=== PATIENT | female | born 1945 | race Caucasian/White ===

== ENCOUNTER 2018-05-03 12:43 | Observation (INO) | payer MEDICARE, OTHER, SELFPAY ==
[2018-05-03] VITALS (13 sets, daily range): BP systolic 101–155; BP diastolic 55–78; PULSE 50–61; RESP 9–100; TEMP 35.7–36.4; O2SAT 96–100; BMI 36.8
--- NOTE | 2018-05-03 12:57 | DI.RAD.S_ITS ---
PROCEDURE: XR CHEST 1V INDICATIONS: CHEST PAIN TECHNIQUE: One view of the chest was acquired. COMPARISON: Merged With [facility], , CHEST 1 VIEW, 03/06/2017, 22:59. FINDINGS: Surgical changes and devices: None. Lungs and pleura: No pleural effusions or pneumothorax. Lungs are clear. Mediastinum: Mediastinal contours appear normal. Heart size is borderline. Mildly tortuous descending aorta. Bones and chest wall: No suspicious bony lesions. Overlying soft tissues appear unremarkable. IMPRESSION: No acute cardiopulmonary abnormality. Dictated by: Javy Borges M.D. on 05/03/2018 at 13:20 Approved by: Javy Borges M.D. on 05/03/2018 at 13:21
[2018-05-03] MEDS: ASPIRIN 81 MG TAB 324 MG PO (13:15)
[2018-05-03 13:18] LABS: Add Manual Diff / Slide Review NO; Basophils Percent Auto 0.6 % (0-2); Eosinophils Percent Auto 4.4 % (2-4); Hematocrit 34.7 % (36-46); Hemoglobin 11.5 g/dL (12.0-16.0); Lymphocytes Percent Auto 26.9 % (25-40); Mean Corpuscular HGB Conc 33.2 % (30-36); Mean Corpuscular Hemoglobin 28.2 PG (26-34); Mean Corpuscular Volume 84.8 fL (80-100); Monocytes Percent Auto 9.1 % (3-14); Neutrophils Absolute Auto 4900 /uL (3000-5900); Platelet Count 257 X10^3/uL (150-400); Red Blood Cell Count 4.09 X10^6/uL (4.0-5.2); Red Cell Distribution Width 14.8 % (11.6-14.8); White Blood Cell Count 8.4 X10^3/uL (4.5-11.0)
[2018-05-03 13:26] LABS: Alanine Aminotransferase 31 IU/L (9-52); Albumin Globulin Ratio 1.3 (1.0-2.8); Alkaline Phosphatase 70 U/L (38-126); Aspartate Aminotransferase 31 IU/L (14-36); Bilirubin Total 0.4 mg/dL (0.2-1.3); Blood Urea Nitrogen 20 mg/dL (7-17); Calcium 8.9 mg/dL (8.4-10.2); Carbon Dioxide 28 mmol/L (22-32); Chloride 104 mmol/L (98-107); Creatine Kinase 172 U/L (30-135); Estimated Glomerular Filt Rate > 60.0 mL/min (>60); Globulin 3.1 g/dL (1.7-4.1); Glucose 97 mg/dL (80-110); HEMOLYSIS < 15 (0-50); Lipase 207 U/L (23-300); Potassium 4.3 mmol/L (3.4-5.1); Sodium 142 mmol/L (137-145); Total Protein 7.1 g/dL (6.3-8.2)
[2018-05-03 13:39] LABS: Troponin I < 0.012 ng/mL (0.01-0.034)
[2018-05-03 13:42] LABS: CKMB % Relative Index 0.8 % (1.5-5.0); Creatine Kinase MB 1.33 ng/mL (<2.37)
[2018-05-03] MEDS: NITROGLYCERIN 0.4 MG SL TAB SL (13:45)
--- NOTE | 2018-05-03 13:59 | ED_ITS ---
HPI - Chest Pain General Chief Complaint: Chest Pain Stated Complaint: CHEST PAIN/ARM Time Seen by Provider: 05/03/18 12:46 Source: patient and family Mode of arrival: ambulatory Limitations: no limitations History of Present Illness HPI narrative: 72-year-old female with history of hypertension and hyperlipidemia presents to the emergency department with chest pain times 30 min. She states that started while at rest and radiates to left shoulder left jaw. She denies provocation or palliation of pain. She denies recent travel, history of clots, or recent surgery. She denies recent injury, excessive use, or other likely precipitant. Related Data Home Medications Medication Instructions Recorded Confirmed gabapentin [Neurontin] #0 12/19/16 hydrocodone-acetaminophen PRN #0 12/19/16 Previous Rx's Medication Instructions Recorded [id number] 4 drp OTIC TID #10 ml 07/12/16 donepezil [Aricept] 10 mg PO HS #90 tab 12/12/17 Allergies Allergy/AdvReac Type Severity Reaction Status Date / Time Penicillins [PENICILLINS] Allergy Mild RASH Verified 05/03/18 13:16 Review of Systems Review of Systems All systems reviewed & are unremarkable except as noted in HPI and below Constitutional Denies chills, Denies fever(s), Denies lethargy and Denies weakness Eyes Denies change in vision, Denies eye discharge, Denies irritation and Denies loss of vision ENT Ears, Nose, Mouth, and Throat: Denies change in voice, Denies neck pain and Denies sore throat Cardiovascular Reports chest pain, Denies irregular heart rhythm, Denies lightheadedness, Denies palpitations, Denies dyspnea, Denies dyspnea on exertion and Denies orthopnea Respiratory Denies cough, Denies dyspnea, Denies dyspnea on exertion and Denies wheezing Gastrointestinal Gastrointestinal: Denies abdominal pain, Denies change in bowel habits, Denies diarrhea, Denies nausea and Denies vomiting Genitourinary Denies hematuria, Denies flank pain, Denies urinary incontinence and Denies urinary urgency Musculoskeletal Denies neck pain Integumentary/Breasts Denies pruritus, Denies erythema, Denies rash and Denies wounds Neurologic Denies confusion, Denies loss of vision and Denies weakness Psychiatric Denies anxiety, Denies confusion, Denies depression, Denies homicidal ideation and Denies suicidal ideation Endocrine Denies palpitations Hematologic/Lymphatic Denies easy bruising Allergic/Immunologic Denies wheezing PFSH Social History Smoking Status: Never smoker Exam Narrative Exam Narrative: 72-year-old female resting comfortably, perhaps a bit anxious Initial Vital Signs Initial Vital Signs: Vital Signs Pulse Rate 56 L 05/03/18 12:45 Blood Pressure 138/66 H 05/03/18 12:45 Pulse Oximetry 100 05/03/18 12:45 Const General: cooperative and well developed Nutritional Appearance: well nourished Orientation: alert, awake, oriented x3 and not confused HENMT Head: normocephalic and atraumatic Ears: external ears normal and TM's normal bilaterally Nose: external nose normal and No nasal discharge Face and sinus: sinuses nontender, face symmetric, no sinus tenderness and No dry mucous membranes Mouth: oral mucosae normal and moist mucous membranes Teeth and gingiva: dentition normal Throat: tonsils normal and uvula midline Eyes General: appearance normal, both eyes and all related structures Eyelids: eyelids normal Conjunctivae: conjunctivae normal Sclera: sclerae normal Pupils: PERRL EOM: EOM intact bilaterally Chest Other: Patient does have some sharp reproducible left anterior chest pain, also right-sided, that is bothersome but is not the pain that brought her in Resp Effort & Inspection: normal respiratory effort, able to speak in complete sentences, no respiratory distress and no use of accessory muscles Auscultation: clear to auscultation bilaterally, no rales, no rhonchi and no wheezes Cardio Rate: regular rate Rhythm: regular rhythm Heart Sounds: no click, no gallops, no murmurs and no rubs Pulses: normal peripheral pulses Back/Spine/Pelvis Back: No CVA tenderness Cervical Spine: cervical ROM normal and No pain with cervical ROM Thoracic/Lumbar Spine: thoracic and lumbar spine normal to inspection Extrem General: full ROM, no clubbing, cyanosis or edema, no pedal edema and no calf tenderness Scores HEART Score Heart Score history: Moderately Suspicious Heart Score EKG: Normal Heart Score Age: > or = 65 years old Heart Score risk factors: 1-2 risk factors Heart Score troponin: < or = to normal limit Heart Score Total: 4 Course Orders Ordered: ED Orders 05/03/18 12:57 XR chest 1V Stat EKG-12 Lead Stat 05/03/18 13:04 Complete Blood Count AUTO DIFF Stat Comprehensive Metabolic Panel Stat Lipase Stat Troponin with CK Cardiac Panel Stat 05/03/18 14:55 Troponin I Stat Discontinued Medications Aspirin (Aspirin Chew) 324 mg PO NOW ONE Stop: 05/03/18 12:58 Last Admin: 05/03/18 13:15 Dose: 324 mg Sodium Chloride (Normal Saline 0.9%) 1,000 mls @ 150 mls/hr IV CONT ASHLEY Nitroglycerin (Nitrostat) 0.4 mg SL NOW ONE Stop: 05/03/18 13:49 Last Admin: 05/03/18 13:45 Dose: 0.4 mg Reevaluation(s) Reevaluation #1: Patient pain down to a 1/10 after nitro Time: 14:14 Consultations Consultation #1: Discussion with hospitalist and we agree to repeat troponin at the 2 hr mushtaq to be sure she is not evolving here in the department. Plan with normal troponin would be to admit, increasing troponin will warrants cardiology discussion Time: 14:14 Consultation #2: Repeat troponin is normal. Dr. Harris happy to accept Time: 15:51 Vital Signs - 8 hr 05/03/18 12:45 05/03/18 12:52 05/03/18 13:30 Temperature 96.3 F L Pulse Rate 56 L 60 55 L Respiratory Rate 20 Blood Pressure 138/66 H Blood Pressure [Right Arm] 138/66 H 138/66 H Pulse Oximetry 100 100 99 05/03/18 13:45 05/03/18 14:00 05/03/18 14:30 Temperature Pulse Rate 61 50 L 50 L Respiratory Rate 11 L Blood Pressure 141/60 H Blood Pressure [Right Arm] 119/56 L 124/55 H Pulse Oximetry 97 98 05/03/18 15:00 05/03/18 15:30 Temperature Pulse Rate 50 L 51 L Respiratory Rate 9 L 100 H Blood Pressure Blood Pressure [Right Arm] 121/64 H 101/78 Pulse Oximetry 98 MDM - Chest Pain Differential Diagnosis Likely pneumothorax, stable angina, unstable angina pectoris, atypical chest pain, st elevation myocardial infarction, costochondritis, chest pain and biliary colic Medical Records Data Attestation: I reviewed the patient's medical records. Lab Data Attestation: I reviewed the patient's lab results. Result diagrams: 05/03/18 13:04 05/03/18 13:04 Lab Results 05/03/18 05/03/18 05/03/18 Range/Units 13:04 13:04 14:55 WBC 8.4 (4.5-11.0) X10^3/uL RBC 4.09 (4.0-5.2) X10^6/uL Hgb 11.5 L (12.0-16.0) g/dL Hct 34.7 L (36-46) % MCV 84.8 (80-100) fL MCH 28.2 (26-34) PG MCHC 33.2 (30-36) % RDW 14.8 (11.6-14.8) % Plt Count 257 (150-400) X10^3/uL Neut % (Auto) 59.0 (50-75) % Lymph % (Auto) 26.9 (25-40) % [place] % (Auto) 9.1 (3-14) % Eos % (Auto) 4.4 H (2-4) % Baso % (Auto) 0.6 (0-2) % Neut # (Auto) 4900 (3735-7710) /uL Sodium 142 (137-145) mmol/L Potassium 4.3 (3.4-5.1) mmol/L Chloride 104 (98-107) mmol/L Carbon Dioxide 28 (22-32) mmol/L BUN 20 H (7-17) mg/dL Creatinine 0.80 (0.52-1.04) mg/dL Estimated GFR > 60.0 (>60) mL/min BUN/Creatinine Ratio 25.0 H (6-22) Glucose 97 (80-110) mg/dL Calcium 8.9 (8.4-10.2) mg/dL Total Bilirubin 0.4 (0.2-1.3) mg/dL AST 31 (14-36) IU/L ALT 31 (9-52) IU/L Alkaline Phosphatase 70 (38-126) U/L Total Creatine Kinase 172 H (30-135) U/L CK-MB (CK-2) 1.33 (<2.37) ng/mL CK-MB (CK-2) Rel Index 0.8 L (1.5-5.0) % Troponin I < 0.012 < 0.012 (0.01-0.034) ng/mL Total Protein 7.1 (6.3-8.2) g/dL Albumin 4.0 (3.5-5.0) g/dL Globulin 3.1 (1.7-4.1) g/dL Albumin/Globulin Ratio 1.3 (1.0-2.8) Lipase 207 (23-300) U/L ECG Data Attestation: I personally reviewed and interpreted this ECG as follows: Interpretation: Normal sinus rhythm without signs of ectopy or ischemia Repeat EKG unchanged MDM Narrative Medical decision making narrative: Patient with history of hypertension and hyperlipidemia presents with chest pain that started at rest just prior to arrival. She admits to radiation of pain to left shoulder and jaw but denies cardiac equivalent such as dizziness, weakness or lightheadedness. She has had no nausea or vomiting. Her heart score is 4 and story is of concern, the time frame does not lend itself to a complete evaluation and discharged from the emergency department. She will be admitted to the hospital for further characterization and evaluation of her pain Discharge Plan Departure Patient Disposition: Admitted as Observation Clinical Impression: Chest pain
[2018-05-03 15:29] LABS: Troponin I < 0.012 ng/mL (0.01-0.034)
--- NOTE | 2018-05-03 16:11 | PC.NURSE ---
reported to me an hour ago that he was going to run errands and that the patient has short term memory problems. He states there's not an alzheimer's diagnosis yet but I think it's coming. I have checked in with her frequently in the last hour to orient her and remind her of admission and she has definitely needed reminding and has forgotten multiple times why she is here. While calling report at the nurses station she came to the doorway of her room having removed herself from all monitors and fully dressed. I sent Elise Cottrell to help her. She walked ot the bathroom with steady gait using her cane. returned at this time and we reoriented her to where she was and admission. She verbalzies understanding.
--- NOTE | 2018-05-03 16:18 | PC.NURSE ---
present upon admission.
--- NOTE | 2018-05-03 16:56 | PM.HP.1 ---
History of Present Illness Date Patient Seen: 05/03/18 Time Patient Seen: 16:57 Chief complaint: CHEST PAIN Narrative: Patient is 72-year-old female presented to the emergency department due to acute chest pain. She does not have prior cardiac history. She was in passenger seat of a car with driving when she had acute moderate to severe pain in the chest which radiated to the jaw and down the arm. She had not had lunch yet. They decided to come to ER for evaluation. The pain was present at time of initial EKG and ER assessment. The discomfort lasted a while, at least an hour, and eventually resolved. Patient has not had any exertional discomfort. She has history of ER evaluation in February 2017 for acute chest pain with negative CT angiogram for pulmonary embolism. She had a stress test in March 2014. She does get intermittent nonradiating chest pains which has been attributed to acid reflux. She has cardiac risk factors of hypertension and hyperlipidemia controlled on medications. Patient History Medical History Esophageal reflux (Acute) Esophageal stricture (Acute) Hyperlipidemia (Acute) Hypertension (Acute) Hypothyroidism (Acute) Melanoma (Acute) Short-term memory loss (Acute) Spinal stenosis (Acute) Family & Social History Family History: Reviewed 05/03/18 by Darryn Harris MD Safety & Behavioral: Feels Safe in Current Yes Environment Been Physically Hurt or No Threatened By a Person Tobacco & Substance use: Smoking Status Never smoker Substance Use Type does not use Meds Home Medications Medication Instructions Recorded Confirmed Type [id number]-[id number]-MP 4 drp OTIC TID #10 ml 07/12/16 Rx gabapentin [Neurontin] #0 12/19/16 History hydrocodone-acetaminophen PRN #0 12/19/16 History donepezil [Aricept] 10 mg PO HS #90 tab 12/12/17 Rx Allergies Allergy/AdvReac Type Severity Reaction Status Date / Time Penicillins [PENICILLINS] Allergy Mild RASH Verified 05/03/18 13:16 Review of Systems Review of Systems All systems reviewed & are unremarkable except as noted in HPI and below Exam Vital Signs (past 8 hours): Vital Signs - 8 hr 05/03/18 12:45 05/03/18 12:52 05/03/18 13:30 Temperature 96.3 F L Pulse Rate 56 L 60 55 L Respiratory Rate 20 Blood Pressure 138/66 H Blood Pressure [Right Arm] 138/66 H 138/66 H Pulse Oximetry 100 100 99 05/03/18 13:45 05/03/18 14:00 05/03/18 14:30 Temperature Pulse Rate 61 50 L 50 L Respiratory Rate 11 L Blood Pressure 141/60 H Blood Pressure [Right Arm] 119/56 L 124/55 H Pulse Oximetry 97 98 05/03/18 15:00 05/03/18 15:30 05/03/18 16:09 Temperature 97.5 F L Pulse Rate 50 L 51 L 52 L Respiratory Rate 9 L 100 H 16 Blood Pressure 155/77 H Blood Pressure [Right Arm] 121/64 H 101/78 Pulse Oximetry 98 100 05/03/18 16:15 Temperature Pulse Rate 51 L Respiratory Rate 16 Blood Pressure 101/78 Blood Pressure [Right Arm] Pulse Oximetry 100 Pulse Oximetry 100 Oxygen Delivery Method Room Air Narrative Exam Narrative: GENERAL: This is an alert well-nourished, well-developed patient, in no apparent distress. HEAD: Atraumatic. Normocephalic. EYES: Pupils equal, round and reactive. Extraocular motions intact. No scleral icterus. No injection or drainage. OROPHARYNX: moist mucosa NECK: Trachea midline. No JVD or lymphadenopathy. CARDIOVASCULAR: Regular rate and rhythm without murmurs, gallops, or rubs. RESPIRATORY: Clear to auscultation bilaterally. GASTROINTESTINAL: Abdomen nondistended, soft, non-tender. No hepato-splenomegaly, or palpable masses. EXTREMITIES: No edema. NEUROLOGICAL: Alert, well oriented, speech is intact, normal bilateral upper and lower extremity strength SKIN: warm, dry, no rash Objective Labs Result Diagrams: 05/03/18 13:04 05/03/18 13:04 Labs: Laboratory Results - last 24 hr 05/03/18 05/03/18 05/03/18 13:04 13:04 14:55 WBC 8.4 RBC 4.09 Hgb 11.5 L Hct 34.7 L MCV 84.8 MCH 28.2 MCHC 33.2 RDW 14.8 Plt Count 257 Neut % (Auto) 59.0 Lymph % (Auto) 26.9 [place] % (Auto) 9.1 Eos % (Auto) 4.4 H Baso % (Auto) 0.6 Neut # (Auto) 4900 Sodium 142 Potassium 4.3 Chloride 104 Carbon Dioxide 28 BUN 20 H Creatinine 0.80 Estimated GFR > 60.0 BUN/Creatinine Ratio 25.0 H Glucose 97 Calcium 8.9 Total Bilirubin 0.4 AST 31 ALT 31 Alkaline Phosphatase 70 Total Creatine Kinase 172 H CK-MB (CK-2) 1.33 CK-MB (CK-2) Rel Index 0.8 L Troponin I < 0.012 < 0.012 Total Protein 7.1 Albumin 4.0 Globulin 3.1 Albumin/Globulin Ratio 1.3 Lipase 207 Assessment & Plan Plan: Assessment/Plan Narrative: 1. Acute chest pain: Patient with cardiac risk factors of hypertension and hyperlipidemia. Her initial EKG and troponin is negative x2. Due to risk factors, she is admitted to observation services for further evaluation of potential cardiac chest pain. There is no pleuritic component to suggest pulmonary embolism. She has history of esophageal reflux and this pain may well be reflux related. Plan: Telemetry monitoring, repeat 8 hr troponin, EKG for recurrent chest pain. Determine need in a.m. for additional evaluation with stress testing in hospital or outpatient. 2. Continue routine medications as taken at home.
--- NOTE | 2018-05-03 17:07 | P.HP_ITS ---
History of Present Illness Date Patient Seen: 05/03/18 Time Patient Seen: 16:57 Chief complaint: CHEST PAIN Narrative: Patient is 72-year-old female presented to the emergency department due to acute chest pain. She does not have prior cardiac history. She was in passenger seat of a car with driving when she had acute moderate to severe pain in the chest which radiated to the jaw and down the arm. She had not had lunch yet. They decided to come to ER for evaluation. The pain was present at time of initial EKG and ER assessment. The discomfort lasted a while , at least an hour, and eventually resolved. Patient has not had any exertional discomfort. She has history of ER evaluation in February 2017 for acute chest pain with negative CT angiogram for pulmonary embolism. She had a stress test in March 2014. She does get intermittent nonradiating chest pains which has been attributed to acid reflux. She has cardiac risk factors of hypertension and hyperlipidemia controlled on medications. Patient History Medical History Esophageal reflux (Acute) Esophageal stricture (Acute) Hyperlipidemia (Acute) Hypertension (Acute) Hypothyroidism (Acute) Melanoma (Acute) Short-term memory loss (Acute) Spinal stenosis (Acute) Family & Social History Family History: Reviewed 05/03/18 by Darryn Harris MD Safety & Behavioral: Feels Safe in Current Yes Environment Been Physically Hurt or No Threatened By a Person Tobacco & Substance use: Smoking Status Never smoker Substance Use Type does not use Meds Home Medications Medication Instructions Recorded Confirmed Type powgyzdj-iwfktlamm-KH 4 drp OTIC TID #10 ml 07/12/16 Rx gabapentin [Neurontin] #0 12/19/16 History hydrocodone-acetaminophen PRN #0 12/19/16 History donepezil [Aricept] 10 mg PO HS #90 tab 12/12/17 Rx Allergies Allergy/AdvReac Type Severity Reaction Status Date / Time Penicillins [PENICILLINS] Allergy Mild RASH Verified 05/03/18 13:16 Review of Systems Review of Systems All systems reviewed & are unremarkable except as noted in HPI and below Exam Vital Signs (past 8 hours): Vital Signs - 8 hr 3 05/03/18 12:45 05/03/18 12:52 05/03/18 13:30 Temperature 96.3 F L Pulse Rate 56 L 60 55 L Respiratory Rate 20 Blood Pressure 138/66 H Blood Pressure [Right Arm] 138/66 H 138/66 H Pulse Oximetry 100 100 99 3 05/03/18 13:45 05/03/18 14:00 05/03/18 14:30 Temperature Pulse Rate 61 50 L 50 L Respiratory Rate 11 L Blood Pressure 141/60 H Blood Pressure [Right Arm] 119/56 L 124/55 H Pulse Oximetry 97 98 3 05/03/18 15:00 05/03/18 15:30 05/03/18 16:09 Temperature 97.5 F L Pulse Rate 50 L 51 L 52 L Respiratory Rate 9 L 100 H 16 Blood Pressure 155/77 H Blood Pressure [Right Arm] 121/64 H 101/78 Pulse Oximetry 98 100 3 05/03/18 16:15 Temperature Pulse Rate 51 L Respiratory Rate 16 Blood Pressure 101/78 Blood Pressure [Right Arm] Pulse Oximetry 100 Pulse Oximetry 100 Oxygen Delivery Method Room Air Narrative Exam Narrative: GENERAL: This is an alert well-nourished, well-developed patient , in no apparent distress. HEAD: Atraumatic. Normocephalic. EYES: Pupils equal, round and reactive. Extraocular motions intact. No scleral icterus. No injection or drainage. OROPHARYNX: moist mucosa NECK: Trachea midline. No JVD or lymphadenopathy. CARDIOVASCULAR: Regular rate and rhythm without murmurs, gallops, or rubs. RESPIRATORY: Clear to auscultation bilaterally. GASTROINTESTINAL: Abdomen nondistended, soft, non-tender. No hepato- splenomegaly, or palpable masses. EXTREMITIES: No edema. NEUROLOGICAL: Alert, well oriented, speech is intact, normal bilateral upper and lower extremity strength SKIN: warm, dry, no rash Objective Labs Result Diagrams: 05/03/18 13:04 05/03/18 13:04 Labs: Laboratory Results - last 24 hr 05/03/18 05/03/18 05/03/18 13:04 13:04 14:55 WBC 8.4 RBC 4.09 Hgb 11.5 L Hct 34.7 L MCV 84.8 MCH 28.2 MCHC 33.2 RDW 14.8 Plt Count 257 Neut % (Auto) 59.0 Lymph % (Auto) 26.9 [place] % (Auto) 9.1 Eos % (Auto) 4.4 H Baso % (Auto) 0.6 Neut # (Auto) 4900 Sodium 142 Potassium 4.3 Chloride 104 Carbon Dioxide 28 BUN 20 H Creatinine 0.80 Estimated GFR > 60.0 BUN/Creatinine Ratio 25.0 H Glucose 97 Calcium 8.9 Total Bilirubin 0.4 AST 31 ALT 31 Alkaline Phosphatase 70 Total Creatine Kinase 172 H CK-MB (CK-2) 1.33 CK-MB (CK-2) Rel Index 0.8 L Troponin I < 0.012 < 0.012 Total Protein 7.1 Albumin 4.0 Globulin 3.1 Albumin/Globulin Ratio 1.3 Lipase 207 Assessment & Plan Plan: Assessment/Plan Narrative: 1. Acute chest pain: Patient with cardiac risk factors of hypertension and hyperlipidemia. Her initial EKG and troponin is negative x2. Due to risk factors, she is admitted to observation services for further evaluation of potential cardiac chest pain. There is no pleuritic component to suggest pulmonary embolism. She has history of esophageal reflux and this pain may well be reflux related. Plan: Telemetry monitoring, repeat 8 hr troponin, EKG for recurrent chest pain. Determine need in a.m. for additional evaluation with stress testing in hospital or outpatient. 2. Continue routine medications as taken at home.
[2018-05-03 17:55] LABS: Troponin I < 0.012 ng/mL (0.01-0.034)
[2018-05-03] MEDS: GABAPENTIN 600 MG TABLET PO (20:42)
[2018-05-03] MEDS: ATORVASTATIN 20 MG TABLET 80 MG PO (20:42)
[2018-05-03] MEDS: DONEPEZIL 5 MG TABLET 10 MG PO (20:43)
[2018-05-03] MEDS: SERTRALINE 25 MG TABLET PO (20:43)
[2018-05-04] MEDS: NITROGLYCERIN 0.4 MG SL TAB SL (00:13)
[2018-05-04] MEDS: ACETAMINOPHEN 325 MG TABLET 650 MG PO (00:18)
[2018-05-04 00:20] VITALS: BP 154/74; PULSE 61; O2SAT 95
--- NOTE | 2018-05-04 01:06 | PC.NURSE ---
Dr. Choi paged to report, pt. C/O insomnia & chest pressure. medicated with 0.4 mg. of SL Nitro earlier. Reports only help a little, then C/O MENDEZ rated pain @ 610, 650 mg. of Tylenol PO admin. without any relief. B/P 154/74, HR. 61 after Nitor was admin. Awaiting call back from Dr. Choi & will monitor.
[2018-05-04] MEDS: CALCIUM CARBONATE 500 MG TAB 1000 MG PO (01:13)
--- NOTE | 2018-05-04 02:35 | PC.NURSE ---
Dr. Choi called back, ordered stat ECG RT. here to do ECG. Went to re-assessed pt. she was sound asleep snoring. Awaken easily asked if she's in pain she denied. States I don't have any CP or chest pressure right now. Informed that ordered 4 mg. of Morphine for pain, will monitor.
[2018-05-04 04:30] VITALS: BP 147/74; PULSE 76; RESP 18; TEMP 36.4; O2SAT 96
[2018-05-04] MEDS: PANTOPRAZOLE 40 MG TABLET PO (06:28)
[2018-05-04] MEDS: LEVOTHYROXINE 50 MCG TABLET PO (06:28)
[2018-05-04 07:48] VITALS: BP 141/78; PULSE 55; RESP 17; TEMP 36.6; O2SAT 98
[2018-05-04] MEDS: HYDROCODONE/ACET 10/325 TABLET 1 TAB PO (07:57)
[2018-05-04] MEDS: GABAPENTIN 600 MG TABLET PO (08:00)
[2018-05-04] MEDS: DONEPEZIL 5 MG TABLET 10 MG PO (08:01)
[2018-05-04] MEDS: LISINOPRIL 10 MG TABLET PO (08:01)
[2018-05-04] MEDS: hydroCHLOROthiazide 12.5 MG CAPSULE PO (08:02)
[2018-05-04] MEDS: METOPROLOL ER 50 MG TABLET 100 MG PO (08:03)
[2018-05-04] MEDS: SODIUM CHLORIDE 0.9% FLUSH 10 ML IV (08:06)
[2018-05-04 09:26] VITALS: O2SAT 97
--- NOTE | 2018-05-04 10:51 | PC.NURSE ---
Pt discharged. Given paperwork and taken by wheelchair to ER entrance.
--- NOTE | 2018-05-04 11:26 | CM.DANOTE ---
DCP: assessment: Case received, EMR reviewed and went to room to check in with pt. Room empty. INOCENCIO Juarez reports pt had just left for home after seeing Dr. Harris again this morning. Documentation revealed pt is a 72 year old female who admitted yesterday at 1550 to care of hospitalist: Dr. Harris (also pt's PCP) for c/o chest pain. Payer: Medicare and INOCENCIO Walls confirms admission status: observation. Dr. Harris ok'd her for home today and with clinic followup. She left for home at 1050. No concerns re the d/c today were identified by the care team members.
--- NOTE | 2018-05-04 12:43 | P.DS_ITS ---
History of Present Illness Chief complaint: CHEST PAIN Narrative: Patient is 72-year-old female presented to the emergency department due to acute chest pain. She does not have prior cardiac history. She was in passenger seat of a car with driving when she had acute moderate to severe pain in the chest which radiated to the jaw and down the arm. She had not had lunch yet. They decided to come to ER for evaluation. The pain was present at time of initial EKG and ER assessment. The discomfort lasted a while , at least an hour, and eventually resolved. Patient has not had any exertional discomfort. She has history of ER evaluation in February 2017 for acute chest pain with negative CT angiogram for pulmonary embolism. She had a stress test in March 2014. She does get intermittent nonradiating chest pains which has been attributed to acid reflux. She has cardiac risk factors of hypertension and hyperlipidemia controlled on medications. Discharge Providers Date of admission: 05/03/18 15:50 Primary care physician: Darryn Harris MD Discharge provider: Darryn Harris MD Summary Discharge Diagnosis: 1. Chest pain syndrome Hospital Course: Patient ruled out for TN with serial cardiac enzymes. EKGs remained without acute findings. Telemetry remained normal. She has not had any significant recurrent discomfort. She is low risk to discharge home but advised to seek urgent care if she has recurrent similar chest discomfort. We will arrange for outpatient chemical stress test since she can't walk long enough on treadmill. Status at Discharge Functional status at discharge: independent ambulation Overall status at discharge: patient is back to baseline Exam Vital Signs (past 8 hours): Vital Signs - 8 hr 3 05/04/18 07:48 05/04/18 09:26 Temperature 97.9 F Pulse Rate 55 L Respiratory Rate 17 Blood Pressure 141/78 H Pulse Oximetry 98 97 Pulse Oximetry 97 Oxygen Delivery Method Room Air Oxygen Flow Rate 0 Objective Labs Result Diagrams: 05/03/18 13:04 05/03/18 13:04 Labs: Laboratory Results - last 24 hr 05/03/18 05/03/18 05/03/18 13:04 13:04 14:55 WBC 8.4 RBC 4.09 Hgb 11.5 L Hct 34.7 L MCV 84.8 MCH 28.2 MCHC 33.2 RDW 14.8 Plt Count 257 Neut % (Auto) 59.0 Lymph % (Auto) 26.9 [place] % (Auto) 9.1 Eos % (Auto) 4.4 H Baso % (Auto) 0.6 Neut # (Auto) 4900 Sodium 142 Potassium 4.3 Chloride 104 Carbon Dioxide 28 BUN 20 H Creatinine 0.80 Estimated GFR > 60.0 BUN/Creatinine Ratio 25.0 H Glucose 97 Calcium 8.9 Total Bilirubin 0.4 AST 31 ALT 31 Alkaline Phosphatase 70 Total Creatine Kinase 172 H CK-MB (CK-2) 1.33 CK-MB (CK-2) Rel Index 0.8 L Troponin I < 0.012 < 0.012 Total Protein 7.1 Albumin 4.0 Globulin 3.1 Albumin/Globulin Ratio 1.3 Lipase 207 05/03/18 17:15 WBC RBC Hgb Hct MCV MCH MCHC RDW Plt Count Neut % (Auto) Lymph % (Auto) [place] % (Auto) Eos % (Auto) Baso % (Auto) Neut # (Auto) Sodium Potassium Chloride Carbon Dioxide BUN Creatinine Estimated GFR BUN/Creatinine Ratio Glucose Calcium Total Bilirubin AST ALT Alkaline Phosphatase Total Creatine Kinase CK-MB (CK-2) CK-MB (CK-2) Rel Index Troponin I < 0.012 Total Protein Albumin Globulin Albumin/Globulin Ratio Lipase Discharge Plan Discharge Plan Patient Disposition: Home, Self-Care Provider Discharge Instructions Diet: Diet as Tolerated Discharge Data Primary Care Provider: Darryn Harris Attending Provider: Darryn Harris Admit Date/Time: 05/03/18 15:50 Discharges patient from system. Discharge Date/Time: 05/04/18 10:52 Quality VTE Deep Vein Thrombosis/Pulmonary Embolism Present on Admission: No
== END 2018-05-04 10:52 | disposition home or self-care (01) ==
LOC: ED 13:56 → AC 15:52
PROVIDERS: Admitting Provider Internal Medicine; Emergency Provider Emergency Medicine; Family Provider Internal Medicine; PCP Internal Medicine; Visit Provider Internal Medicine
DX: R07.9 Chest pain, unspecified (principal); I10 Essential (primary) hypertension; E78.5 Hyperlipidemia, unspecified; K21.9 Gastro-esophageal reflux disease without esophagitis
CPT/HCPCS: 36415; 71045; 80053; 82550; 82553; 83690; 84484; 85025; 93005; 99283; 99284; G0378

== ENCOUNTER → 2018-05-20 13:30 | Outpatient (CLI) | payer MEDICARE, OTHER, SELFPAY ==
[2018-05-03 16:46] VITALS: BMI 36.8
--- NOTE | 2018-05-21 13:42 | DI.NM.S_ITS ---
DATE OF SERVICE: 05/20/2018 PROCEDURE: Pharmacological perfusion study. INDICATION: Chest pain with underlying hypertension, hyperlipidemia. Patient is a 72-year-old female. RADIOPHARMACEUTICAL: 24.2 mCi technetium-99m Myoview IV was injected at stress, and 25.5 mCi technetium-99m Myoview IV was injected at rest. CARDIAC STRESS: Patient underwent Lexiscan perfusion study under the supervision of an attending staff using standard IV Lexiscan protocol. She also walked at low level with Lexiscan stress test. Her resting blood pressure was 102/60. Peak blood pressure 122/80. Resting heart rate 65. Peak heart rate 106 beats per minute. Baseline rhythm was sinus. Stress EKG did not reveal any obvious inducible ischemic changes. There were no significant arrhythmias. Patient had chest tightness during stress. RAW DATA: There was breast shadow seen. GATED STUDY: Stress LV ejection fraction 89%. No obvious wall motion abnormalities. Resting end-diastolic volume 88 mL. No transient ischemic dilatation. TID ratio 1.00, which is within normal limits. Lung/heart ratio 0.36, which is within normal limits. MYOCARDIAL PERFUSION SCAN: Stress and resting supine images revealed small-sized mildly decreased perfusion of distal anterior wall and anterior apex which got completely normalized during prone images, suggestive of breast tissue attenuation artifact. On prone images, no convincing ischemia infarction pattern. CONCLUSION: 1. I will call this study a normal myocardial perfusion study. There was breast tissue attenuation artifact seen which got resolved during prone images. No transient ischemic dilatation. No obvious ischemic EKG changes. No significant arrhythmias. As far as myocardial perfusion scan is concerned, this is a low-risk myocardial perfusion scan. Patient had perfusion scan in March 2014. At that time also, she had similar perfusion defect which got resolved during prone images. Sofia Israel - [employer]/fn/kv doc#: [id number]/job#: [id number] dd: 05/21/2018 12:28:00 dt: 05/21/2018 13:34:00 DICTATING MD/COPIES TO: Gabbie Silverio MD COPIES MNE: PALCharito
== END ==
PROVIDERS: PCP Internal Medicine; Visit Provider Internal Medicine
DX: R07.9 Chest pain, unspecified (principal); I10 Essential (primary) hypertension; E78.5 Hyperlipidemia, unspecified
CPT/HCPCS: 78452; 93016; 93017; 93018; A9502; J2785

== ENCOUNTER → 2018-07-04 11:41 | Outpatient (CLI) | payer MEDICARE, OTHER, SELFPAY ==
[2018-05-03 16:46] VITALS: BMI 36.8
--- NOTE | 2018-07-04 | DI.MG.S_ITS ---
BILATERAL DIGITAL SCREENING MAMMOGRAM 3D/2D WITH CAD: 07/04/2018 CLINICAL: Routine screening. Family history of breast cancer. Comparison is made to exams dated: 06/28/2017 mammogram, 06/15/2016 mammogram, and 06/04/2015 mammogram - [facility]. There are scattered fibroglandular elements in both breasts. Current study was also evaluated with a Computer Aided Detection (CAD) system. There are benign vascular calcifications in both breasts. No significant masses, calcifications, or other findings are seen in either breast. There has been no significant interval change. IMPRESSION: BENIGN There is no mammographic evidence of malignancy. A 1 year screening mammogram is recommended. This exam was interpreted at Station ID: [id number]. NOTE: For mammograms, a report in lay terms will be sent to the patient. Approximately 15% of breast malignancies will not be visualized mammographically. In the management of a palpable breast mass, a negative mammogram must not discourage biopsy of a clinically suspicious lesion. Electronically Signed By: Lluvia spencer/joel:07/04/2018 15:05:22 letter sent: Normal Exam ACR BI-RADS Category 2: Benign Finding(s) [id number]
== END ==
PROVIDERS: PCP Internal Medicine; Visit Provider Internal Medicine
DX: Z12.31 Encounter for screening mammogram for malignant neoplasm of breast (principal); Z80.3 Family history of malignant neoplasm of breast
CPT/HCPCS: 77063; 77067

== ENCOUNTER → 2018-07-18 13:34 | Outpatient (CLI) | payer MEDICARE, OTHER, SELFPAY ==
[2018-05-03 16:46] VITALS: BMI 36.8
[2018-07-18 14:15] LABS: Aspartate Aminotransferase 37 IU/L (14-36); BUN Creatinine Ratio 25.5 (6-22); Blood Urea Nitrogen 28 mg/dL (7-17); Calcium 9.6 mg/dL (8.4-10.2); Carbon Dioxide 33 mmol/L (22-32); Chloride 102 mmol/L (98-107); Cholesterol 191 mg/dL (140-199); Estimated Glomerular Filt Rate 48.6 mL/min (>60); Glucose 86 mg/dL (80-110); HDL Cholesterol 58 mg/dL (40-60); HEMOLYSIS < 15 (0-50); LDL Cholesterol Calculated 95 mg/dL (<100); Potassium 5.2 mmol/L (3.4-5.1); Sodium 143 mmol/L (137-145); Triglycerides 192 mg/dL (35-150)
[2018-07-18 15:01] LABS: Thyroid Stimulating Hormone 1.74 uIU/mL (0.47-4.68)
== END ==
PROVIDERS: PCP Internal Medicine; Visit Provider Internal Medicine
DX: I10 Essential (primary) hypertension (principal); E03.9 Hypothyroidism, unspecified; E78.2 Mixed hyperlipidemia
CPT/HCPCS: 36415; 80048; 80061; 84443; 84450

== ENCOUNTER → 2018-07-22 14:17 | Outpatient (CLI) | payer MEDICARE, OTHER, SELFPAY ==
[2018-05-03 16:46] VITALS: BMI 36.8
== END ==
PROVIDERS: PCP Internal Medicine; Visit Provider Internal Medicine
DX: M85.851 Other specified disorders of bone density and structure, right thigh (principal); Z78.0 Asymptomatic menopausal state; Z82.62 Family history of osteoporosis
CPT/HCPCS: 77080

== ENCOUNTER 2018-10-25 02:20 | Emergency (ER) | payer MEDICARE, OTHER, SELFPAY ==
[2018-05-03 16:46] VITALS: BMI 36.8
[2018-10-25 02:20] VITALS: BP 122/48; PULSE 59; RESP 14; TEMP 36.9; O2SAT 98
--- NOTE | 2018-10-25 02:25 | DI.RAD.S_ITS ---
PROCEDURE: XR CHEST 1V INDICATIONS: chest pain TECHNIQUE: One view of the chest was acquired. COMPARISON: [facility], CR, XR CHEST 1V, 05/03/2018, 13:06. FINDINGS: Surgical changes and devices: None. Lungs and pleura: No pleural effusions or pneumothorax. Lungs are clear. Mediastinum: Mediastinal contours appear normal. Heart size is normal. Bones and chest wall: No suspicious bony lesions. Overlying soft tissues appear unremarkable. IMPRESSION: No acute cardiopulmonary disease process. Dictated by: Lisa Sidhu MD, PhD on 10/25/2018 at 9:05 Approved by: Lisa Sidhu MD, PhD on 10/25/2018 at 9:05
--- NOTE | 2018-10-25 02:46 | ED.CHESTPAIN ---
HPI - Chest Pain General Chief Complaint: Chest Pain Stated Complaint: Chest pain Time Seen by Provider: 10/25/18 02:25 Source: patient, EMS and old records reviewed Mode of arrival: EMS History of Present Illness HPI narrative: Patient is a 72-year-old female who presents with chest discomfort. It started just before her arrival she is unsure if it woke her from her sleep. Seem to be in the middle of her chest. When EMS arrived to chest pain started resolving and she did receive aspirin. She is chest pain-free here. She was admitted in April with chest pain she had a myocardial perfusion scan which was negative. Her states that she has had many episodes like this in the past she has had full workups in have been negative. She denies any shortness of breath diaphoresis or nausea. This is similar to other episodes. MD complaint: chest pain Duration: now resolved Onset: during rest Quality: aching Pain radiation: none Relieving factors: nothing Exacerbating factors: nothing Treatments prior to arrival chest pain: aspirin Related Data Home Medications Medication Instructions Recorded Confirmed gabapentin [Neurontin] 600 mg PO QID #0 12/19/16 05/03/18 hydrocodone-acetaminophen 1 tab PO BID PRN #0 12/19/16 05/03/18 atorvastatin 80 mg PO DAILY 05/03/18 05/03/18 donepezil [Aricept] 20 mg PO HS 05/03/18 05/03/18 levothyroxine 0.5 mg PO DAILY 05/03/18 05/03/18 lisinopril-hydrochlorothiazide 10 - 12.5 mg PO DAILY 05/03/18 05/03/18 meloxicam 15 mg PO DAILY 05/03/18 05/03/18 metoprolol succinate 100 mg PO DAILY 05/03/18 05/03/18 omeprazole 40 mg PO DAILY 05/03/18 05/03/18 sertraline 25 mg PO DAILY 05/03/18 05/03/18 Allergies Allergy/AdvReac Type Severity Reaction Status Date / Time Penicillins [PENICILLINS] Allergy Mild RASH Verified 05/03/18 13:16 Review of Systems Review of Systems All systems reviewed & are unremarkable except as noted in HPI and below Constitutional Denies chills, Denies fever(s), Denies lethargy and Denies weakness ENT Ears, Nose, Mouth, and Throat: Denies dizziness Cardiovascular Reports as per HPI, Denies syncope, Denies dyspnea and Denies dyspnea on exertion Respiratory Denies cough, Denies dyspnea, Denies dyspnea on exertion and Denies wheezing Gastrointestinal Gastrointestinal: Denies abdominal pain, Denies diarrhea, Denies nausea and Denies vomiting Genitourinary Denies hematuria, Denies flank pain, Denies urinary incontinence and Denies urinary urgency Integumentary/Breasts Denies pruritus, Denies erythema, Denies rash and Denies wounds Neurologic Denies confusion, Denies dizziness, Denies syncope and Denies weakness Psychiatric Denies confusion Hematologic/Lymphatic Denies easy bleeding and Denies easy bruising Allergic/Immunologic Denies wheezing [facility] Medical History Esophageal dilatation (Acute) Esophageal reflux (Acute) Esophageal stricture (Acute) Fracture of tibia, distal (Acute) Hepatic cyst (Acute) Hyperlipidemia (Acute) Hypertension (Acute) Hypothyroidism (Acute) Melanoma (Acute) Mitral valve prolapse (Acute) Short-term memory loss (Acute) Spinal stenosis (Acute) Surgical History History of arthroplasty of left ankle (Acute) History of arthroplasty of left knee (Acute) History of spinal fusion (Acute) S/P right knee arthroscopy (Acute) Status post hardware removal (Acute) Social History household members: spouse Smoking Status: Never smoker alcohol intake: current Exam Initial Vital Signs Initial Vital Signs: Vital Signs Temperature 98.4 F 10/25/18 02:20 Pulse Rate 59 L 10/25/18 02:20 Respiratory Rate 14 10/25/18 02:20 Blood Pressure 122/48 L 10/25/18 02:20 Pulse Oximetry 98 10/25/18 02:20 GENERAL: Alert well-appearing elderly female no acute distress HEENT: Head atraumatic,EOMI, pupils reactive, face symmetric, moist mucous membranes CARDIOVASCULAR: Regular rate and rhythm without murmurs, rubs or gallops. Pain not reproducible with palpation RESPIRATORY: Breath sounds equal bilaterally, no wheezes rales or rhonchi. ABDOMEN: Soft, nontender. Normoactive bowel sounds all 4 quadrants. No guarding or rebound. EXTREMITIES: Normal range of motion, no clubbing or edema. Neurovascularly intact NEUROLOGICAL: Alert and oriented x4.Normal gait and speech. SKIN: Warm, dry, no laceration, no petechiae, no rashes or lesions. Course Orders Ordered: ED Orders 10/25/18 02:25 XR chest 1V Stat Complete Blood Count AUTO DIFF Stat Comprehensive Metabolic Panel Stat Lipase Stat Partial Thromboplastin Time Stat Prothrombin Time INR Stat Troponin & CK Cardiac Panel Stat EKG-12 Lead Stat 10/25/18 04:41 Troponin I Stat Discontinued Medications Pantoprazole Sodium (Protonix) 40 mg IV NOW ONE Stop: 10/25/18 03:01 Last Admin: 10/25/18 03:12 Dose: 40 mg Vital Signs - 8 hr 10/25/18 02:20 10/25/18 03:53 10/25/18 05:19 Temperature 98.4 F Pulse Rate 59 L 61 55 L Respiratory Rate 14 15 13 Blood Pressure 122/48 L Blood Pressure [Left Arm] 128/53 L 106/50 L Pulse Oximetry 98 97 98 MDM - Chest Pain Lab Data Attestation: I reviewed the patient's lab results. Result diagrams: 10/25/18 02:25 10/25/18 02:25 Lab Results 10/25/18 10/25/18 10/25/18 Range/Units 02:25 02:25 02:25 WBC 7.0 (4.5-11.0) X10^3/uL RBC 3.98 L (4.0-5.2) X10^6/uL Hgb 11.4 L (12.0-16.0) g/dL Hct 34.0 L (36-46) % MCV 85.6 (80-100) fL MCH 28.7 (26-34) PG MCHC 33.6 (30-36) % RDW 14.3 (11.6-14.8) % Plt Count 257 (150-400) X10^3/uL Neut % (Auto) 51.2 (50-75) % Lymph % (Auto) 32.8 (25-40) % [place] % (Auto) 10.7 (3-14) % Eos % (Auto) 4.7 H (2-4) % Baso % (Auto) 0.6 (0-2) % Neut # (Auto) 3600 (9352-9616) /uL PT 10.6 (10.1-12.7) SECONDS INR 1.0 (0.9-1.3) APTT 29 (26.4-36.2) SECONDS Sodium 140 (137-145) mmol/L Potassium 4.2 (3.4-5.1) mmol/L Chloride 105 (98-107) mmol/L Carbon Dioxide 26 (22-32) mmol/L BUN 23 H (7-17) mg/dL Creatinine 1.20 H (0.52-1.04) mg/dL Estimated GFR 43.9 L (>60) mL/min BUN/Creatinine Ratio 19.2 (6-22) Glucose 95 (80-110) mg/dL Calcium 9.3 (8.4-10.2) mg/dL Total Bilirubin 0.2 (0.2-1.3) mg/dL AST 40 H (14-36) IU/L ALT 37 (9-52) IU/L Alkaline Phosphatase 74 (38-126) U/L Total Creatine Kinase 248 H (30-135) U/L CK-MB (CK-2) 2.59 H (<2.37) ng/mL CK-MB (CK-2) Rel Index 1.0 L (1.5-5.0) % Troponin I < 0.012 (0.01-0.034) ng/mL Total Protein 6.8 (6.3-8.2) g/dL Albumin 4.0 (3.5-5.0) g/dL Globulin 2.8 (1.7-4.1) g/dL Albumin/Globulin Ratio 1.4 (1.0-2.8) Lipase 220 (23-300) U/L 10/25/18 Range/Units 04:41 WBC (4.5-11.0) X10^3/uL RBC (4.0-5.2) X10^6/uL Hgb (12.0-16.0) g/dL Hct (36-46) % MCV (80-100) fL MCH (26-34) PG MCHC (30-36) % RDW (11.6-14.8) % Plt Count (150-400) X10^3/uL Neut % (Auto) (50-75) % Lymph % (Auto) (25-40) % [place] % (Auto) (3-14) % Eos % (Auto) (2-4) % Baso % (Auto) (0-2) % Neut # (Auto) (2885-1911) /uL PT (10.1-12.7) SECONDS INR (0.9-1.3) APTT (26.4-36.2) SECONDS Sodium (137-145) mmol/L Potassium (3.4-5.1) mmol/L Chloride (98-107) mmol/L Carbon Dioxide (22-32) mmol/L BUN (7-17) mg/dL Creatinine (0.52-1.04) mg/dL Estimated GFR (>60) mL/min BUN/Creatinine Ratio (6-22) Glucose (80-110) mg/dL Calcium (8.4-10.2) mg/dL Total Bilirubin (0.2-1.3) mg/dL AST (14-36) IU/L ALT (9-52) IU/L Alkaline Phosphatase (38-126) U/L Total Creatine Kinase (30-135) U/L CK-MB (CK-2) (<2.37) ng/mL CK-MB (CK-2) Rel Index (1.5-5.0) % Troponin I < 0.012 (0.01-0.034) ng/mL Total Protein (6.3-8.2) g/dL Albumin (3.5-5.0) g/dL Globulin (1.7-4.1) g/dL Albumin/Globulin Ratio (1.0-2.8) Lipase (23-300) U/L Imaging Data Chest x-ray: Attestation: I personally reviewed and interpreted this imaging study as follows: My impression: No acute cardiopulmonary process ECG Data Attestation: I personally reviewed and interpreted this ECG as follows: Prior ECG tracings: available for review Interpretation: Sinus rhythm rate 63 Q-wave noted in lead 3 non pathological is seen on 03/06/[address] change no T-wave inversions, ND interval 212 consistent with first-degree AV block similar to prior EKG MDM Narrative Medical decision making narrative: Patient has remained chest pain-free while in the ED. She does have a negative perfusion scan from 5 months ago. this is similar to previous episodes She has 2-troponins and no changes on EKG Discharge Plan Departure Patient Disposition: Home Clinical Impression: Atypical chest pain, GERD (gastroesophageal reflux disease) Instructions: DI for Gastroesophageal Reflux Disease (GERD), DI for Atypical Chest Pain Activity Restrictions/Additional Instructions: *You have been diagnosed with atypical chest pain, acid reflux *What to do: Blood work EKG and chest x-ray within normal limits, stress test in April was negative, if your continuing to have chest pain may require further workup with your primary doctor *Continue to take medications as directed Omeprazole 30 min before your biggest meal on an empty stomach *Follow up with your primary care provider in 2-3 days *Return to ER if you should have change in symptoms, worsening pain, shortness breath or any new, worsening or concerning symptoms Prescriptions: No Action gabapentin [Neurontin] 300 MG capsule 600 mg PO QID Qty: 0 RF: 0 hydrocodone-acetaminophen 10 MG/325 MG tablet 1 tab PO BID PRN (Reason: Pain, Moderate) Qty: 0 RF: 0 donepezil [Aricept] 10 MG tablet 20 mg PO HS RF: 0 atorvastatin 80 mg tablet 80 mg PO DAILY RF: 0 levothyroxine 50 mcg tablet 0.5 mg PO DAILY RF: 0 sertraline 25 mg tablet 25 mg PO DAILY RF: 0 meloxicam 15 mg tablet 15 mg PO DAILY RF: 0 metoprolol succinate 100 mg tablet extended release 24 hr 100 mg PO DAILY RF: 0 omeprazole 40 mg capsule,delayed release(DR/EC) 40 mg PO DAILY RF: 0 lisinopril-hydrochlorothiazide 10-12.5 mg tablet 10 - 12.5 mg PO DAILY RF: 0
[2018-10-25 02:49] LABS: Add Manual Diff / Slide Review NO; Basophils Percent Auto 0.6 % (0-2); Eosinophils Percent Auto 4.7 % (2-4); Hemoglobin 11.4 g/dL (12.0-16.0); Lymphocytes Percent Auto 32.8 % (25-40); Mean Corpuscular HGB Conc 33.6 % (30-36); Mean Corpuscular Hemoglobin 28.7 PG (26-34); Mean Corpuscular Volume 85.6 fL (80-100); Monocytes Percent Auto 10.7 % (3-14); Neutrophils Absolute Auto 3600 /uL (3000-5900); Neutrophils Percent Auto 51.2 % (50-75); Platelet Count 257 X10^3/uL (150-400); Red Blood Cell Count 3.98 X10^6/uL (4.0-5.2); Red Cell Distribution Width 14.3 % (11.6-14.8)
[2018-10-25 02:54] LABS: Alanine Aminotransferase 37 IU/L (9-52); Albumin Globulin Ratio 1.4 (1.0-2.8); Alkaline Phosphatase 74 U/L (38-126); Aspartate Aminotransferase 40 IU/L (14-36); BUN Creatinine Ratio 19.2 (6-22); Bilirubin Total 0.2 mg/dL (0.2-1.3); Blood Urea Nitrogen 23 mg/dL (7-17); Calcium 9.3 mg/dL (8.4-10.2); Carbon Dioxide 26 mmol/L (22-32); Chloride 105 mmol/L (98-107); Creatine Kinase 248 U/L (30-135); Estimated Glomerular Filt Rate 43.9 mL/min (>60); Globulin 2.8 g/dL (1.7-4.1); Glucose 95 mg/dL (80-110); HEMOLYSIS < 15 (0-50); Lipase 220 U/L (23-300); Potassium 4.2 mmol/L (3.4-5.1); Prothrombin Time 10.6 SECONDS (10.1-12.7); Sodium 140 mmol/L (137-145); Total Protein 6.8 g/dL (6.3-8.2)
[2018-10-25 02:57] LABS: PTT Partial Thromboplastin Tim 29 SECONDS (26.4-36.2)
[2018-10-25 03:06] LABS: Troponin I < 0.012 ng/mL (0.01-0.034)
[2018-10-25 03:09] LABS: Creatine Kinase MB 2.59 ng/mL (<2.37)
[2018-10-25] MEDS: PANTOPRAZOLE 40 MG VIAL IV (03:12)
[2018-10-25 03:53] VITALS: BP 128/53; PULSE 61; RESP 15; O2SAT 97
[2018-10-25 05:15] LABS: Troponin I < 0.012 ng/mL (0.01-0.034)
[2018-10-25 05:19] VITALS: BP 106/50; PULSE 55; RESP 13; O2SAT 98
== END 2018-10-25 05:21 | disposition home or self-care (01) ==
PROVIDERS: Emergency Provider Emergency Medicine; PCP Internal Medicine
DX: K21.9 Gastro-esophageal reflux disease without esophagitis (principal); R07.89 Other chest pain
CPT/HCPCS: 36415; 71045; 80053; 82550; 82553; 83690; 84484; 85025; 85610; 85730; 93005; 96374; 99283; 99285; C9113

== ENCOUNTER → 2019-03-10 18:31 | Outpatient (CLI) | payer MEDICARE, OTHER, SELFPAY ==
[2018-05-03 16:46] VITALS: BMI 36.8
--- NOTE | 2019-03-10 18:33 | DI.MRI.S_ITS ---
PROCEDURE: MR LUMBAR SPINE WO CON INDICATIONS: POSTLAMINECTOMY SYNDROME,NOT ELESWHERE CLASSIFIED TECHNIQUE: Noncontrast sagittal T1 spin echo and T2 fast echo, sagittal STIR, axial T1 and T2 fast spin echo through the lumbar spine. In cases with scoliosis, additional coronal T2 fast spin echo may be performed. COMPARISON: [facility], MR, L-SPINE WITHOUT CONTRAST, 06/20/2017, 18:00. FINDINGS: Image quality: Excellent. Alignment and Curvature: There is normal bony alignment. Remote posterior laminectomy and posterior lateral abelardo and pedicle screw fixation and interbody bone graft material is noted from L3-L5. Since the prior study, according to physician office notes, the patient has undergone L2-L3 lateral interbody fusion and cage placement and anterior lateral plate fixation. Bone Marrow: Marrow is of normal overall signal. No acute vertebral body compression fractures. Spinal Cord: Conus medullaris terminates at the L1-L2 level. Visualized cord demonstrates normal signal and size. Paraspinous Soft Tissues: No paravertebral masses. T11-T12: No canal stenosis or foraminal stenosis T12-L1: No canal stenosis or foraminal stenosis. L1-L2: Interval development of moderate broad-based disc bulge. Mild canal stenosis. Bilateral facet hypertrophy, right greater than left. Severe right foraminal narrowing and moderate left foraminal narrowing L2-L3: Interval fusion. There is a question of posterior fluid versus scar versus artifact to the left of midline extending to severely narrowed the left foramen. There is posterior laminectomy and anterior osteophyte. L3-L4: Posterior laminectomy in mature fusion. No canal stenosis or foraminal stenosis. L4-L5: Posterior laminectomy and mature fusion. No canal stenosis or foraminal stenosis. L5-S1: No canal stenosis. Bilateral facet hypertrophy. Mild bilateral foraminal narrowing. IMPRESSION: 1. Remote L3-L5 laminectomy and posterior lateral right and pedicle screw fixation. 2. Interval L2-L3 lateral interbody fusion and cage placement and anterior lateral plate fixation, based on physician office notes. 3. Artifact versus left posterior posterior lateral fluid versus scar extending to significantly involve the left foramen at L2-L3. Recommend either lumbar CT or lumbar spine MRI with and without contrast. 4. Interval development of moderate broad-based disc bulge at L1-L2, resulting in mild canal stenosis. Bilateral facet hypertrophy. Severe right foraminal narrowing and moderate left foraminal narrowing. Dictated by: Hossein Fernando M.D. on 03/11/2019 at 17:27 Approved by: Hossein Fernando M.D. on 03/11/2019 at 17:37
== END ==
PROVIDERS: PCP Internal Medicine; Visit Provider Neurological Surgery
DX: M96.1 Postlaminectomy syndrome, not elsewhere classified (principal)
CPT/HCPCS: 72148

== ENCOUNTER → 2019-03-14 10:42 | Outpatient (CLI) | payer MEDICARE, OTHER, SELFPAY ==
[2018-05-03 16:46] VITALS: BMI 36.8
--- NOTE | 2019-03-14 11:46 | DI.CT.S_ITS ---
PROCEDURE: CT LUMBAR SPINE WO CON INDICATIONS: Postlaminectomy syndrome, not elsewhere classified TECHNIQUE: Noncontrast 3 mm thick sections acquired from the T12 level to the sacrum. Sagittal and coronal reformats were constructed. In this patient, 3-D reformatted images were also performed. For radiation dose reduction, the following was used: automated exposure control. COMPARISON: [facility], CR, L-SPINE 2-3 VIEWS, 06/20/2017, 18:14. [facility], MR, L-SPINE WITHOUT CONTRAST, 03/17/2011, 12:54. [facility], MR, L-SPINE WITHOUT CONTRAST, 06/20/2017, 18:00. [facility], MR, L-SPINE W&WO CONTRAST, 09/15/2013, 10:12. [facility], MR, MR LUMBAR SPINE WO CON, 03/10/2019, 18:56. FINDINGS: Image quality: Excellent. Bones: No acute vertebral body compression fractures. No suspicious lytic or blastic bony lesions. Central spinal caliber is of normal overall caliber. No pars defects. Extensive postoperative changes are seen, with bilateral pedicle screws at the L3, L4, and L5 levels. There also left-sided screws inserted at the L2 and L3 levels. Disc spacers are seen at L2-L3, L3-L4, and L4-L5 levels. There has been removal of portions of the posterior elements. Bone grafting material is noted. Mild retrolisthesis is seen at L1-L2. There is mild anterolisthesis seen at the L4-L5 level. T12-L1: No significant abnormality is seen. L1-L2: Retrolisthesis is seen at this level. Moderate to severe loss of disc height is seen. Vacuum disc phenomenon is seen at this level. Moderate bilateral neural foraminal narrowing is seen. Mild bilateral neural foraminal narrowing is seen. These degenerative changes have progressed compared to 2017. L2-L3: Mild to moderate loss of disc height is seen. Relatively prominent irregularity is seen. Postoperative endplate osteophytes are seen. Moderate to severe disc bulge is seen, with endplate irregularity and posteriorly projecting endplate osteophytes, particularly on the left side. There is moderate to severe right-sided and severe left-sided neural foraminal narrowing seen. Moderate central canal narrowing is seen. When comparison is made with the prior examination, these findings are similar. L3-L4: At least moderate disc bulge is seen. Endplate osteophyte formation is seen, including posteriorly projecting endplate osteophytes. There is moderate left-sided neural foraminal narrowing, as on series 5 image 30. There is at least moderate right-sided neural foraminal narrowing seen, as on series 5 image 38. When comparison is made with the prior examination, these findings are similar. L4-L5: Moderate loss of disc height is seen. Nbud-im-xegkbfei disc bulge is seen. Mild bilateral neural foraminal narrowing is seen. The central canal is widely patent. Stable from the prior study. L5-S1: The disc height is well preserved. Mild disc bulge is seen. Prominent facet hypertrophy is seen, right worse than left. There is at least moderate bilateral neural foraminal narrowing seen, left worse than right. No significant central canal narrowing is seen. When comparison is made with the prior examination, these findings are similar. Soft tissues: No retroperitoneal masses or hematomas. Visualized aorta is normal in caliber. IMPRESSION: Extensive lumbar spine hardware is seen, without a complication observed. Progression of degenerative change at L2-L3 compared to 2017. Otherwise, the degenerative changes are similar to the prior MRI. Dictated by: Andriy Reyes M.D. on 03/14/2019 at 11:55 Approved by: Andriy Reyes M.D. on 03/14/2019 at 12:03
== END ==
PROVIDERS: PCP Internal Medicine; Visit Provider Neurological Surgery
DX: M96.1 Postlaminectomy syndrome, not elsewhere classified (principal); M47.816 Spondylosis without myelopathy or radiculopathy, lumbar region; M47.817 Spondylosis without myelopathy or radiculopathy, lumbosacral region
CPT/HCPCS: 72131

== ENCOUNTER → 2019-07-08 11:04 | Outpatient (CLI) | payer MEDICARE, OTHER, SELFPAY ==
[2018-05-03 16:46] VITALS: BMI 36.8
--- NOTE | 2019-07-08 | DI.MG.S_ITS ---
BILATERAL DIGITAL SCREENING MAMMOGRAM 3D/2D WITH CAD: 07/08/2019 CLINICAL: Routine screening. Family history of breast cancer. Comparison is made to exams dated: 07/04/2018 mammogram, 07/04/2018 mammogram, 06/28/2017 mammogram, and 06/15/2016 mammogram - [facility]. There are scattered fibroglandular elements in both breasts. Current study was also evaluated with a Computer Aided Detection (CAD) system. There are benign calcifications in both breasts. No significant masses, calcifications, or other findings are seen in either breast. There has been no significant interval change. IMPRESSION: There is no mammographic evidence of malignancy. A 1 year screening mammogram is recommended. This exam was interpreted at Station ID: [id number]. NOTE: For mammograms, a report in lay terms will be sent to the patient. Approximately 15% of breast malignancies will not be visualized mammographically. In the management of a palpable breast mass, a negative mammogram must not discourage biopsy of a clinically suspicious lesion. Electronically Signed By: Aquiles malloy/joel:07/08/2019 15:39:41 letter sent: Normal Exam ACR BI-RADS Category 2: Benign Finding(s) 3342F
== END ==
PROVIDERS: PCP Internal Medicine; Visit Provider Internal Medicine
DX: Z12.31 Encounter for screening mammogram for malignant neoplasm of breast (principal); Z80.3 Family history of malignant neoplasm of breast
CPT/HCPCS: 77063; 77067